=== PATIENT | male | born 1965 | race Caucasian/White ===

== ENCOUNTER 2020-01-29 00:50 | Emergency (ER) | payer BC ==
[2020-01-29] MEDS ORDERED: methylPREDNISolone Sodium Succinate 125 MG/2 ML SDV IVPUSH STA (01:14)
[2020-01-29] MEDS ORDERED: Sodium Chloride 0.9% 1,000 ML IV SCH ×2 (01:15→02:30)
[2020-01-29] MEDS ORDERED: EPINEPHrine 1 MG/1 ML Amp IM ONE (01:15)
[2020-01-29] MEDS ORDERED: diphenhydrAMINE 50 MG/ML SDV IVPUSH ONE (01:23)
--- NOTE | 2020-01-29 01:37 | EDM.PDOC ---
ED HPI GENERAL MEDICAL PROBLEM - General Chief Complaint: General Stated Complaint: stomach pain, hives, SOB Time Seen by Provider: 01/29/20 01:10 Source of Information: Reports: Patient History Limitations: Reports: No Limitations - History of Present Illness INITIAL COMMENTS - FREE TEXT/NARRATIVE: Jhonny is a 54 yo male who presented to the ED via private vehicle with concerns of an allergic reaction. States he has been dealing with abdominal pain the last couple of weeks. States he started taking Prilosec which never seemed to help. States the pain starts in the epigastric area and has continued to get worse. has been using TUMS with minimal relief. States tonight it got so bad he took a Prilosec which didn't give him any relief. He decided to try a pain pill that they had left over in the house since 2012. States it was hydromorphone and he took it around 2300 hrs about an hour after taking the Prilosec. Admits about an hour after taking the hydromorphone he woke up to hives and found it difficult to breath. Started to get extremely itchy and took 1 tablet of Benadryl. Admits the breathing scared him as he felt like his throat was closing and his neck was swelling. Upon arrival to the ED the nurse immediately gave 1 dose of epinephrine IM. I did arrive about 10 minutes after administering of the epinephrine and Jhonny admits to feeling a lot better. He currently denies any difficulty breathing. States the itchiness is still present but does feel the hives have improved. We did give 125mg of SoluMedrol and 25mg of Benadryl IV as well. Onset: Today, Sudden Duration: Improving - Related Data Allergies Allergy/AdvReac Type Severity Reaction Status Date / Time acetaminophen [From Percocet] Allergy Cannot Verified 01/29/20 01:11 Remember clindamycin Allergy Cannot Verified 01/29/20 01:11 Remember oxycodone [From Percocet] Allergy Cannot Verified 01/29/20 01:11 Remember Home Meds: Home Meds Aspirin 325 mg PO DAILY 04/26/16 [History] Cholecalciferol (Vitamin D3) [Vitamin D3] 5,000 units PO DAILY 04/26/16 [History ] Multivitamin [Daily Multiple Vitamin] 1 tab PO DAILY 04/26/16 [History] metroNIDAZOLE [metroNIDAZOLE 0.75% Cream] 1 applic TOP DAILY 04/26/16 [History] Fish Oil/[place]-3 Fatty Acids [Fish Oil 1,000 MG] 1 gm PO DAILY 04/27/16 [History ] Flaxseed/Omega3,6,9/Fatty Acid [Flax Seed Oil 1,300 mg Softgel] 1 each PO DAILY 04/27/16 [History] Social & Family History - Living Situation & Occupation Living situation: Reports: Occupation: Employed Course - Orders/Labs/Meds Orders: Active Orders 24 hr Category Date Time Status Sodium Chloride 0.9% [Normal Saline] 1,000 ml Med 01/29/20 01:15 Active IV ASDIRECTED Medication Orders Sodium Chloride (Normal Saline) 1,000 mls @ 999 mls/hr IV ASDIRECTED CARRIE Last Admin: 01/29/20 01:17 Dose: 999 mls/hr Meds: Medications Generic Name Dose Route Start Last Admin Trade Name Freq PRN Reason Stop Dose Admin Sodium Chloride 1,000 mls @ 999 mls/hr 01/29/20 01:15 01/29/20 01:17 Normal Saline IV 999 mls/hr ASDIRECTED CARRIE Administration Discontinued Medications Generic Name Dose Route Start Last Admin Trade Name Freq PRN Reason Stop Dose Admin Diphenhydramine HCl 25 mg 01/29/20 01:23 Benadryl IVPUSH 01/29/20 01:24 ONETIME ONE Epinephrine HCl 0.3 mg 01/29/20 01:15 01/29/20 01:22 Adrenalin IM 01/29/20 01:16 0.3 mg ONETIME ONE Administration Methylprednisolone Sodium Succinate 125 mg 01/29/20 01:14 01/29/20 01:23 Solu-Medrol IVPUSH 01/29/20 01:15 125 mg STAT STA Administration Departure - Discharge Information - My Orders Last 24 Hours: My Active Orders 01/29/20 01:15 Sodium Chloride 0.9% [Normal Saline] 1,000 ml IV ASDIRECTED - Assessment/Plan Last 24 Hours: My Active Orders 01/29/20 01:15 Sodium Chloride 0.9% [Normal Saline] 1,000 ml IV ASDIRECTED
[2020-01-29 01:51] VITALS: BP 119/70; PULSE 99
--- NOTE | 2020-01-29 02:09 | EDM.PDOC ---
ED HPI GENERAL MEDICAL PROBLEM - General Chief Complaint: General Stated Complaint: stomach pain, hives, SOB Time Seen by Provider: 01/29/20 01:10 - History of Present Illness INITIAL COMMENTS - FREE TEXT/NARRATIVE: Jhonny is a 54 yo male who presented to the ED via private vehicle with concerns of an allergic reaction. States he has been dealing with abdominal pain the last couple of weeks. States he started taking Prilosec which never seemed to help. States the pain starts in the epigastric area and has continued to get worse. has been using TUMS with minimal relief. States tonight it got so bad he took a Prilosec which didn't give him any relief. He decided to try a pain pill that they had left over in the house since 2012. States it was hydromorphone and he took it around 2300 hrs about an hour after taking the Prilosec. Admits about an hour after taking the hydromorphone he woke up to hives and found it difficult to breath. Started to get extremely itchy and took 1 tablet of Benadryl. Admits the breathing scared him as he felt like his throat was closing and his neck was swelling. Upon arrival to the ED the nurse immediately gave 1 dose of epinephrine IM. I did arrive about 10 minutes after administering of the epinephrine and Jhonny admits to feeling a lot better. He currently denies any difficulty breathing. States the itchiness is still present but does feel the hives have improved. We did give 125mg of SoluMedrol and 25mg of Benadryl IV as well. Onset: Today, Sudden Duration: Improving Location: Reports: Neck, Chest, Generalized - Related Data Allergies Allergy/AdvReac Type Severity Reaction Status Date / Time acetaminophen [From Percocet] Allergy Cannot Verified 01/29/20 01:11 Remember clindamycin Allergy Cannot Verified 01/29/20 01:11 Remember oxycodone [From Percocet] Allergy Cannot Verified 01/29/20 01:11 Remember Home Meds: Home Meds Cholecalciferol (Vitamin D3) [Vitamin D3] 5,000 units PO DAILY 04/26/16 [History ] Allopurinol [Zyloprim] 300 mg PO DAILY 01/29/20 [History] Ascorbic Acid [Vitamin C] 2,000 mg PO DAILY 01/29/20 [History] Magnesium Oxide [Magnesium] 500 mg PO DAILY 01/29/20 [History] Past Medical History HEENT History: Reports: None Gastrointestinal History: Reports: Other (See Below) Other Gastrointestinal History: abdominal burning/discomfort Social & Family History - Tobacco Use Smoking Status *Q: Never Smoker - Caffeine Use Caffeine Use: Reports: Soda - Recreational Drug Use Recreational Drug Use: No - Living Situation & Occupation Living situation: Reports: Occupation: Employed ED ROS GENERAL - Review of Systems Review Of Systems: See Below Constitutional: Denies: Fever, Chills, Weakness HEENT: Reports: Throat Swelling Respiratory: Reports: Shortness of Breath. Denies: Wheezing, Cough Cardiovascular: Denies: Chest Pain, Lightheadedness, Palpitations GI/Abdominal: Reports: Abdominal Pain (midepigastric). Denies: Bloody Stool, Constipation, Diarrhea, Nausea, Vomiting : Reports: No Symptoms Musculoskeletal: Reports: No Symptoms Skin: Reports: Urticaria Neurological: Reports: No Symptoms Psychiatric: Reports: No Symptoms ED EXAM, GENERAL - Physical Exam Exam: See Below Exam Limited By: No Limitations General Appearance: Alert, No Apparent Distress Nose: Normal Inspection, Normal Mucosa, No Blood Throat/Mouth: Normal Inspection, Normal Lips, Normal Gums, Normal Oropharynx, Normal Voice, No Airway Compromise Head: Atraumatic, Normocephalic Neck: Normal Inspection, Supple Respiratory/Chest: No Respiratory Distress, Lungs Clear, Normal Breath Sounds, No Accessory Muscle Use Cardiovascular: Regular Rate, Rhythm, No Edema, No Murmur GI/Abdominal: Normal Bowel Sounds, Soft, No Organomegaly, Tender (midepigastric) Extremities: Redness (excoriations to bilateral arms from scratching) Neurological: Alert, Oriented Psychiatric: Normal Affect, Normal Mood, Anxious Skin Exam: Rash (blanching with raised palpable wheals to torso, arms. Flushing noted to face. No angioedema visualized upon my arrival. ) Course - Vital Signs Last Recorded V/S: Last Vital Signs Temp 96.4 F L 01/29/20 00:55 Pulse 99 01/29/20 01:10 Resp 20 01/29/20 01:10 BP 119/70 01/29/20 01:10 Pulse Ox 99 01/29/20 01:10 - Orders/Labs/Meds Orders: Active Orders 24 hr Category Date Time Status Sodium Chloride 0.9% [Normal Saline] 1,000 ml Med 01/29/20 01:15 Active IV ASDIRECTED Sodium Chloride 0.9% [Normal Saline] 1,000 ml Med 01/29/20 02:30 Active IV ASDIRECTED Medication Orders Sodium Chloride (Normal Saline) 1,000 mls @ 999 mls/hr IV ASDIRECTED CARRIE Last Admin: 01/29/20 01:17 Dose: 999 mls/hr Sodium Chloride (Normal Saline) 1,000 mls @ 150 mls/hr IV ASDIRECTED CARRIE Last Admin: 01/29/20 02:34 Dose: 150 mls/hr Labs: Laboratory Tests 01/29/20 01/29/20 Range/Units 02:25 02:25 WBC 13.2 H (5.0-10.0) 10^3/uL RBC 4.67 (4.50-6.00) 10^6/uL Hgb 16.2 (14.0-18.0) g/dL Hct 45.3 (40.0-54.0) % MCV 97.0 H (82.0-94.0) fL MCH 34.7 H (27.0-32.0) pg MCHC 35.8 (33.0-38.0) g/dL RDW Coeff of Abdi 12.8 (11.0-15.0) % Plt Count 165 (150-400) 10^3/uL Neut % (Auto) 80.7 (35-85) % Lymph % (Auto) 13.6 (10-55) % [place] % (Auto) 5.0 (0-16) % Eos % (Auto) 0.5 (0-5) % Baso % (Auto) 0.2 (0-3) % Neut # (Auto) 10.63 H (1.80-7.00) 10^3/uL Lymph # (Auto) 1.79 (1.00-4.80) 10^3/uL [place] # (Auto) 0.66 (0.00-0.80) 10^3/uL Eos # (Auto) 0.07 (0.00-0.45) 10^3/uL Baso # (Auto) 0.02 10^3/uL Sodium 137 (136-145) mEq/L Potassium 3.1 L (3.5-5.0) mEq/L Chloride 103 (98-106) mEq/L Carbon Dioxide 23 (21-32) mmol/L BUN 24 H (7-18) mg/dL Creatinine 1.3 (0.7-1.3) mg/dL Est Cr Clr Drug Dosing 72.96 mL/min Estimated GFR (MDRD) 58 L (>=60) mL/min Glucose 189 H D (75-99) mg/dL Calcium 8.1 L (8.4-10.1) mg/dL Total Bilirubin 0.9 (0.0-1.0) mg/dL AST 30 (15-37) U/L ALT 56 (12-78) U/L Alkaline Phosphatase 64 (46-116) U/L C-Reactive Protein 1.3 H (0.2-0.8) mg/dL Total Protein 5.7 L (6.4-8.2) g/dL Albumin 3.1 L (3.4-5.0) g/dL Amylase 22 L (25-115) U/L Lipase 85 (73-393) U/L Meds: Medications Generic Name Dose Route Start Last Admin Trade Name Freq PRN Reason Stop Dose Admin Sodium Chloride 1,000 mls @ 999 mls/hr 01/29/20 01:15 01/29/20 01:17 Normal Saline IV 999 mls/hr ASDIRECTED CARRIE Administration Sodium Chloride 1,000 mls @ 150 mls/hr 01/29/20 02:30 01/29/20 02:34 Normal Saline IV 150 mls/hr ASDIRECTED CARRIE Administration Discontinued Medications Generic Name Dose Route Start Last Admin Trade Name Freq PRN Reason Stop Dose Admin Diphenhydramine HCl 25 mg 01/29/20 01:23 01/29/20 01:32 Benadryl IVPUSH 01/29/20 01:24 25 mg ONETIME ONE Administration Epinephrine HCl 0.3 mg 01/29/20 01:15 01/29/20 01:22 Adrenalin IM 01/29/20 01:16 0.3 mg ONETIME ONE Administration Potassium Chloride 20 meq/ 100 mls @ 25 mls/hr 01/29/20 02:46 01/29/20 02:56 Premix IV 01/29/20 06:45 25 mls/hr ONETIME ONE Administration Methylprednisolone Sodium Succinate 125 mg 01/29/20 01:14 01/29/20 01:23 Solu-Medrol IVPUSH 01/29/20 01:15 125 mg STAT STA Administration Pantoprazole Sodium 40 mg 01/29/20 02:48 01/29/20 02:56 Protonix Iv IVPUSH 01/29/20 02:49 40 mg ONETIME ONE Administration - Re-Assessments/Exams Free Text/Narrative Re-Assessment/Exam: 01/29/20 02:09 Jhonny appears to be doing a lot better upon my arrival. Did not appear to be in any distress. No sign of respiratory distress. Speaking in full sentences and having normal conversation. He admits to feeling a lot better. We did closely monitor hi for an hour in the ED. He was given 125mg of Solu Medrol as well as 25mg of diphenhydramine IV. No further epinephrine was given since initial on arrival. Normal saline was initiated with a 500ml bolus. Discussed continuing with close monitoring. We will keep in extended ER with telemetry tonight. Labs currently pending for abdominal pain. Will rule out pancreatitis, etc... Will plan for discharge around 8 am if continues to improved and all labs are stable. Departure - Departure Time of Disposition: 09:23 Disposition: Home, Self-Care 01 Clinical Impression: Acute epigastric pain Anaphylactic reaction Qualifiers: Encounter type: initial encounter Qualified Code(s): T78.2XXA - Anaphylactic shock, unspecified, initial encounter GERD (gastroesophageal reflux disease) Qualifiers: Esophagitis presence: esophagitis presence not specified Qualified Code(s): K21.9 - Gastro-esophageal reflux disease without esophagitis - Discharge Information Instructions: Food Choices for Gastroesophageal Reflux Disease, Adult, Easy-to- Read, Abdominal Pain, Adult, Anaphylactic Reaction, Adult, [id number] Referrals: Frank Jung MD [Primary Care Provider] - Forms: ED Department Discharge Additional Instructions: 1) Pantoprazole 40mg daily for epigastric discomfort 2) Carafate 1gm QID for 1 month for epigastric discomfort 3) Epipen - advise to carry and use as directed 4) If any symptoms return or any concerns at all, advise returning to ED> Sepsis Event Note - Evaluation Sepsis Screening Result: No Definite Risk - Focused Exam Vital Signs: Vital Signs Temp Pulse Resp BP Pulse Ox 05/29/20 01:10 99 20 119/70 99 01/29/20 00:55 96.4 F L 115 H 20 93/66 96 Date Exam was Performed: 01/29/20 Time Exam was Performed: 09:27 - Problem List & Annotations (1) Acute epigastric pain SNOMED Code(s): 59551868, 17913045 Code(s): R10.13 - EPIGASTRIC PAIN Status: Acute Current Visit: Yes (2) Anaphylactic reaction SNOMED Code(s): 51087591 Code(s): T78.2XXA - ANAPHYLACTIC SHOCK, UNSPECIFIED, INITIAL ENCOUNTER Status: Acute Current Visit: Yes Qualifiers: Encounter type: initial encounter Qualified Code(s): T78.2XXA - Anaphylactic shock, unspecified, initial encounter (3) GERD (gastroesophageal reflux disease) SNOMED Code(s): 447007698 Code(s): K21.9 - GASTRO-ESOPHAGEAL REFLUX DISEASE WITHOUT ESOPHAGITIS Status: Acute Current Visit: Yes Qualifiers: Esophagitis presence: esophagitis presence not specified Qualified Code(s) : K21.9 - Gastro-esophageal reflux disease without esophagitis - My Orders Last 24 Hours: My Active Orders 01/29/20 01:15 Sodium Chloride 0.9% [Normal Saline] 1,000 ml IV ASDIRECTED 01/29/20 02:30 Sodium Chloride 0.9% [Normal Saline] 1,000 ml IV ASDIRECTED - Assessment/Plan Last 24 Hours: My Active Orders 01/29/20 01:15 Sodium Chloride 0.9% [Normal Saline] 1,000 ml IV ASDIRECTED 01/29/20 02:30 Sodium Chloride 0.9% [Normal Saline] 1,000 ml IV ASDIRECTED Plan: Jhonny had an uneventful night. No further hives. States they all have subsided. Admits his abdominal pain is only giving him some slight discomfort. Will look at discharge at this time. Patient in agreement and in satisfactory condition. All labs were stable, no concerning findings.
[2020-01-29] MEDS ORDERED: Potassium Chloride 20 MEQ in Premix Bag 1 BAG IV ONE (02:46)
[2020-01-29] MEDS ORDERED: Pantoprazole 40 MG Vial IVPUSH ONE (02:48)
== END 2020-01-29 09:45 | disposition home or self-care (01) ==
LOC: SUPCPDRO 00:50 → CC.ED 00:50
DX: K21.9 Gastro-esophageal reflux disease without esophagitis (principal); T88.6XXA Anaphylactic reaction due to adverse effect of correct drug or medicament properly administered, initial encounter; T40.2X5A Adverse effect of other opioids, initial encounter; T78.2XXA Anaphylactic shock, unspecified, initial encounter; Z88.6 Allergy status to analgesic agent; Z88.5 Allergy status to narcotic agent; Z88.1 Allergy status to other antibiotic agents; Z79.899 Other long term (current) drug therapy
CPT/HCPCS: 36415; 80053; 82150; 83690; 85025; 86140; 96361; 96365; 96366; 96372; 96375; 99284-25; C9113; J0171; J1200; J2930; J3480; J7030

== ENCOUNTER → 2022-11-23 | Day surgery (SDC) | payer BC ==
[~2022-11-23] MED LIST: Flumazenil 0.1 MG/ML 10 ML MDV ONE; Ketamine 200 MG/20 ML MDV ONE; Midazolam 1 MG/ML 2 ML SDV ONE; Phenylephrine 1% 10 MG/ML SDV ONE; Propofol 200 MG/20 ML SDV ONE; fentaNYL 50 MCG/ML SDV ONE
[2022-11-23] MEDS: Lactated Ringers 1,000 ML IV SCH (10:24)
[2022-11-23 14:58] VITALS: BP 107/73; PULSE 60
== END ==
LOC: CC.SDS 09:48
PROVIDERS: ATTEND Family Medicine
DX: Z12.11 Encounter for screening for malignant neoplasm of colon (principal); D12.2 Benign neoplasm of ascending colon; D12.3 Benign neoplasm of transverse colon; D12.5 Benign neoplasm of sigmoid colon; K64.9 Unspecified hemorrhoids; R53.83 Other fatigue; R35.1 Nocturia; N40.0 Benign prostatic hyperplasia without lower urinary tract symptoms; R63.5 Abnormal weight gain; Z86.010 Personal history of colon polyps; E78.5 Hyperlipidemia, unspecified; M10.9 Gout, unspecified; M19.90 Unspecified osteoarthritis, unspecified site; Z88.5 Allergy status to narcotic agent; Z88.8 Allergy status to other drugs, medicaments and biological substances; Z79.899 Other long term (current) drug therapy
CPT/HCPCS: 00811; J2250; J2370; J2704; J3010; J3490; J7120

== ENCOUNTER → 2023-01-04 | Day surgery (SDC) | payer BC ==
[~2023-01-04] MED LIST changes: -Flumazenil 0.1 MG/ML 10 ML MDV ONE; +Lactated Ringers 1,000 ML IV SCH; +Lidocaine 2% 20 ML MDV ONE; -Phenylephrine 1% 10 MG/ML SDV ONE
[2023-01-04 13:09] VITALS: BP 101/74; PULSE 54
== END ==
LOC: CC.SDS 09:04
PROVIDERS: ATTEND Family Medicine
DX: K21.9 Gastro-esophageal reflux disease without esophagitis (principal); K29.80 Duodenitis without bleeding; K29.70 Gastritis, unspecified, without bleeding
CPT/HCPCS: 00731; 87081; J2250; J2704; J3010; J3490; J7120